=== PATIENT | male | born 1970 | race Caucasian/White ===

== ENCOUNTER 2024-04-29 10:09 | Emergency (ER) | payer OTHER, SELFPAY ==
[2024-04-29 10:10] VITALS: BP 144/92; PULSE 81; RESP 14; TEMP 36.7; O2SAT 98; BMI 26.1
--- NOTE | 2024-04-29 10:37 | ED.GENADULT ---
HPI - General Adult General Chief complaint: Upper Respiratory Symptoms Stated complaint: Lost voice, Sore throat, cough Time Seen by Provider: 04/29/24 10:21 Source: patient Mode of arrival: Ambulatory History of Present Illness HPI narrative: 53-year-old male with cough and sore throat, laryngitis worse yesterday somewhat improved today, no previous testing, first medical encounter for this cycle of illness. No shortness of breath or chest pain. No nausea or vomiting or diarrhea. Denies headache, able to swallow well and move neck well. Related Data Allergies Allergy/AdvReac Type Severity Reaction Status Date / Time No Known Drug Allergies Allergy Verified 04/29/24 10:16 Patient History Social History Smoking Status: Unknown if ever smoked Smoking Status: Unknown if ever smoked Exam Narrative Exam Narrative: GENERAL: Well-developed patient, in mild distress. HEAD: Atraumatic. Normocephalic. EYES: Pupils equal round and reactive. Extraocular motions intact. No scleral icterus. No injection or drainage. ENT: Nose without bleeding, purulent drainage. Throat without erythema, tonsillar hypertrophy or exudate. Airway patent. NECK: Trachea midline. Non tender CARDIOVASCULAR: Regular rate and rhythm without murmurs, gallops, or rubs. RESPIRATORY: Clear to auscultation. Breath sounds equal bilaterally. No wheezes, rales, or rhonchi. GASTROINTESTINAL: Abdomen soft, non-tender, nondistended. EXTREMITIES: No edema or joint tenderness. BACK: Nontender without deformity or crepitance. No flank tenderness. NEURO: AOx3. Motor functions grossly nonfocal SKIN: No rash or erythema of visible areas Initial Vital Signs Initial Vital Signs: Vital Signs Temperature 98.0 F 04/29/24 10:10 Pulse Rate 81 04/29/24 10:10 Respiratory Rate 14 04/29/24 10:10 Blood Pressure 144/92 H 04/29/24 10:10 Pulse Oximetry 98 04/29/24 10:10 Oxygen Delivery Method Room Air 04/29/24 10:10 Course Orders Ordered: ED Orders 04/29/24 10:21 Covid-19 + FLU A/B + RSV - PCR Stat Strep Grp A by PCR Rapid Stat Vital Signs Vital signs: Vital Signs - 8 hr 04/29/24 10:10 Temperature 98.0 F Pulse Rate 81 Respiratory Rate 14 Blood Pressure 144/92 H Pulse Oximetry 98 Oxygen Delivery Method Room Air Medical Decision Making Lab Data Labs: Lab Results 04/29/24 Range/Units 10:21 SARS-CoV-2 (PCR) Negative (Negative) Influenza A (RT-PCR) Flu a negative (NEGATIVE) Influenza B (RT-PCR) Flu b negative (NEGATIVE) RSV (PCR) Negative (Negative) Group A Strep (PCR) Cancelled MDM Narrative Medical decision making narrative: 53-year-old male with recent cough and laryngitis. Swab for COVID/influenza sent from triage, pending at this time. Strep screen was also sent from triage, seems clinically less likely patient has streptococcal acute infection. Discussed likely viral etiology of symptoms with patient, await test results. COVID, influenza, RSV swab negative. Strep screen apparently was technically inadequate swab, we will not re-swab, clinically doubt streptococcal throat/neck infection at this time, discussed with patient, who is agreeable. Clinically suspected viral illness with viral laryngitis. Symptomatic treatment discussed. Discharged home. Discharge Plan Departure Patient Disposition: Home Clinical Impression: Upper respiratory infection, Acute viral laryngitis Activity Restrictions/Additional Instructions: Clinically suspected upper respiratory infection and likely laryngitis due to viral infection. Swabs COVID and influenza and RSV were negative. Rapid screen streptococcal swab was sent but apparently felt to be technically inadequate specimen by laboratory, clinically this does not seem to be likely diagnosis, we did not Re swab and sudden new swab at this time. Take Tylenol and or Motrin as needed for pain control symptoms. Consider lozenges [id number] as needed for sore throat discomfort if needed. Drink plenty of fluids. Recheck with your regular provider if not improving by early next week. Return to this/nearest emergency department for any change worsening symptoms or any concerns prior Stand Alone Forms: Patient Portal/API/Survey
[2024-04-29 11:13] LABS: Influenza A - CEPHEID Flu A NEGATIVE (NEGATIVE); Influenza B - CEPHEID Flu B NEGATIVE (NEGATIVE); Respiratory Syncytial Virus Negative (Negative)
[2024-04-29 11:42] LABS: COVID-19 CEPHEID 4-PLEX PCR Negative (Negative)
[2024-04-29 12:06] VITALS: BP 132/78; PULSE 85; RESP 16; O2SAT 98
== END 2024-04-29 12:07 | disposition home or self-care (01) ==
PROVIDERS: Emergency Provider Emergency Medicine
DX: J06.9 Acute upper respiratory infection, unspecified (principal); J04.0 Acute laryngitis
CPT/HCPCS: 0241U; 99282